=== PATIENT | female | born 1980 | race Caucasian/White ===

== ENCOUNTER 2018-05-23 10:43 | Emergency (ER) | payer MEDICAID ==
--- NOTE | 2018-05-23 11:15 | EDM.PDOC ---
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 She states that she is around 6 weeks and she noticed some bright red vaginal bleeding that began approximately one hour ago. Her last menstrual period was April 12, 2018. She has never had any type of miscarriage or past issues with pregnancies. She will be doctoring with Dr. Fernandez,and has her first appointment scheduled but has not seen him yet. She states that she is Rh-. She is worried about a possible miscarriage or ectopic . She says there was some slight cramping with this as well but nothing that was really worrisome. She states that her is worried about the viability of the and urged her to be evaluated. She states that the amount of blood loss estimated would be around a fist full at this time. She is unsure if she is just a little bit stressed out and was doing too much activity at home as well, as she has 9 children at home running around. 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 Denies: Discharge, Dysuria Musculoskeletal: Reports: No Symptoms Skin: Reports: No Symptoms Neurological: Reports: No Symptoms Psychiatric: Reports: No Symptoms Hematologic/Lymphatic: Reports: No Symptoms Immunologic: Reports: No Symptoms ED EXAM - Physical Exam Exam: See Below Exam Limited By: No Limitations General Appearance: Alert, WD/WN, No Apparent Distress Eye Exam: Bilateral Eye: Normal Inspection Ears: Normal External Exam Nose: Normal Inspection Throat/Mouth: Normal Inspection, Normal Lips, Normal Teeth, Normal Oropharynx, Normal Voice, No Airway Compromise Head: Atraumatic, Normocephalic Neck: Normal Inspection Respiratory/Chest: No Respiratory Distress, Lungs Clear, Normal Breath Sounds, No Accessory Muscle Use, Chest Non-Tender Cardiovascular: Normal Peripheral Pulses, Regular Rate, Rhythm, No Murmur GI/Abdominal Exam: Normal Bowel Sounds, Soft, Non-Tender, No Distention, No Mass (Female) Exam: Other (Pt deferred due to transvaginal US.) Heart Tones: Not Carter (too early to hear heart tones) Movement: Not Appreciated (too early to feel movement) Extremities: Normal Inspection, Normal Capillary Refill Neurological: Alert, Oriented, Normal Cognition, No Motor/Sensory Deficits Psychiatric: Normal Affect, Normal Mood Skin Exam: Warm, Dry, Intact, Normal Color, No Rash Course - Vital Signs Last Recorded V/S: Last Vital Signs Temp 98.2 F 05/23/18 10:47 Pulse 106 H 05/23/18 10:47 Resp 16 05/23/18 10:47 BP 124/74 05/23/18 10:47 Pulse Ox 98 05/23/18 10:47 - Orders/Labs/Meds Orders: Active Orders 24 hr Category Date Time Status PATIENT RETYPE [BBK] Routine Lab 05/23/18 12:38 Ordered Labs: Laboratory Tests 05/23/18 05/23/18 05/23/18 Range/Units 11:17 11:17 11:17 WBC 8.28 (3.98-10.04) K/mm3 RBC 4.47 (3.98-5.22) M/mm3 Hgb 13.5 (11.2-15.7) gm/L Hct 40.6 (34.1-44.9) % MCV 90.8 (79.4-94.8) fl MCH 30.2 (25.6-32.2) pg MCHC 33.3 (32.2-35.5) g/dl RDW Std Deviation 44.7 (36.4-46.3) fL Plt Count 193 (182-369) K/mm3 MPV 11.5 (9.4-12.3) fl Neutrophils % (Manual) 80 H (40-60) % Band Neutrophils % 3 (0-10) % Lymphocytes % (Manual) 11 L (20-40) % Atypical Lymphs % 0 % Monocytes % (Manual) 4 (2-10) % Eosinophils % (Manual) 2 (0.7-5.8) % Basophils % (Manual) 0 L (0.1-1.2) Platelet Estimate Adequate Plt Morphology Comment Normal RBC Morph Comment Normal HCG, Quant 40101.0 mIU/mL Blood Type A NEGATIVE Gel Antibody Screen Negative - Re-Assessments/Exams Free Text/Narrative Re-Assessment/Exam: 05/23/18 11:19 Patient presents to the ED for the evaluation of vaginal bleeding with . I have ordered a CBC, transvaginal ultrasound and a quantitative hCG level for further evaluation. 05/23/18 12:02 Patient's CBC has returned and does not show any decrease in hemoglobin. Ultrasound is done and awaiting the official radiology read however the prior authorization technician states that there appears to be a viable yolk sac at this time and no free fluid. 05/23/18 12:09 HCG Quant is done and reveals 34,340 which is consistent for around a 6 week . 05/23/18 12:30 Ultrasound is done and demonstrated a single intrauterine gestational sac, however no pole is visualized at this time. He does recommend a follow- up ultrasound in around 11 days barring she does not miscarry in the interim. I will recommend that she limit herself to light activity and does not have increased stress in her life as much as possible. Departure - Departure Time of Disposition: 12:30 Disposition: Home, Self-Care 01 Condition: Fair Clinical Impression: Vaginal bleeding during - Discharge Information *PRESCRIPTION DRUG MONITORING PROGRAM REVIEWED*: No *COPY OF PRESCRIPTION DRUG MONITORING REPORT IN PATIENT GIULIA: No Instructions: Pelvic Pain, Female Referrals: Bhavik Fernandez MD [Primary Care Provider] - Forms: ED Department Discharge Additional Instructions: You have been evaluated in the ED for vaginal bleeding with . Your ultrasound demonstrated a viable yolk sac at this ED visit. The estimated gestational age is 6 weeks 5 days by this ultrasound your estimated delivery date is 01/11/19. The bleeding you were having might be likely due to implantation of the fetus to the uterus lining. Please try to limit your activity over the weekend and take it easy, so you do not increase the chance of having a miscarriage. It is recommended by our radiologist that you follow up with OB in 11 days for a repeat ultrasound. Please return to the ED if your symptoms change or worsen. - My Orders Last 24 Hours: My Active Orders 05/23/18 12:38 PATIENT RETYPE [BBK] Routine - Assessment/Plan Last 24 Hours: My Active Orders 05/23/18 12:38 PATIENT RETYPE [BBK] Routine
--- NOTE | 2018-05-23 12:16 | US ---
First trimester obstetrical ultrasound: Multiple real-time images were obtained transvaginally. Comparison: No previous study. Dates: LMP: LMP given as 04/12/18, DESMOND 01/17/19 gestational age 5 weeks 6 days Current ultrasound: DESMOND 01/11/19, gestational age 6 weeks 5 days Single intrauterine gestational sac is seen. Yolk sac is identified but no pole is seen at this time. Incidental nabothian cyst is present. No subchorionic hemorrhage is seen. Small amount of free fluid is seen within the cul-de-sac which is believed to be incidental. No adnexal abnormalities are seen. Evidence of previous right oophorectomy. Impression: 1. Single intrauterine gestational sac. Dates as noted above. 2. No pole is seen. If patient does not miscarry, recommend repeat study in 11 days to further evaluate. 3. Other incidental findings. Diagnostic code #3
== END 2018-05-23 12:44 | disposition home or self-care (01) ==
LOC: JD.ED 10:43
DX: O20.9 Hemorrhage in early pregnancy, unspecified (principal); Z3A.01 Less than 8 weeks gestation of pregnancy; Z88.8 Allergy status to other drugs, medicaments and biological substances
CPT/HCPCS: 36415; 76817; 76817-26; 84702; 85007; 85027; 86850; 86900; 86901; 99282; 99284-25

== ENCOUNTER 2018-07-07 20:51 | Emergency (ER) | payer MEDICAID ==
[2018-07-07] MEDS ORDERED: Sodium Chloride 0.9% 10 ML Syringe FLUSH PRN (21:05)
--- NOTE | 2018-07-07 21:38 | EDM.PDOC ---
ED HPI GENERAL MEDICAL PROBLEM - General Source of Information: Reports: Patient History Limitations: Reports: No Limitations - History of Present Illness Onset: Today, Sudden Onset Date: 07/07/18 Onset Time: 20:00 Duration: Intermittent Location: Reports: Other (vagina) Quality: Reports: Ache Severity: Mild Improves with: Reports: None Worsens with: Reports: None Associated Symptoms: Reports: Other (cramping). 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 She is G10 P 9. She states she started bleeding after having sex earlier this evening. She c/o mild cramping. She denies any back pain, dysuria, fever, chills, nausea or vomiting. She states all her children have been born at 37 + weeks, no complications. She reports being A- blood type. She also complains of left lower leg pain. She describes the pain as a burning sensation that started after she was standing up in the shower. She denies any SOB or chest pain. She is accompanied by her spouse. She is in no apparent distress. 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: - Past Surgical History Female Surgical History: Reports: Cystectomy <July Arthur - Last Filed: 07/07/18 22:57> Social & Family History - Tobacco Use Smoking Status *Q: Never Smoker - Caffeine Use Caffeine Use: Reports: None - Recreational Drug Use Recreational Drug Use: No <July Arthur - Last Filed: 07/07/18 22:57> ED ROS GENERAL - Review of Systems Review Of Systems: See Below Constitutional: Denies: Fever, Chills HEENT: Reports: No Symptoms Respiratory: Denies: Shortness of Breath Cardiovascular: Denies: Chest Pain Endocrine: Reports: No Symptoms GI/Abdominal: Reports: Other (vaginal bleeding mild cramping). Denies: Abdominal Pain : Reports: Discharge, Other (vaginal bleeding mild cramping) Musculoskeletal: Reports: Other (left lower calf pain) Skin: Reports: No Symptoms Neurological: Reports: No Symptoms Psychiatric: Reports: No Symptoms Hematologic/Lymphatic: Reports: No Symptoms Immunologic: Reports: No Symptoms <July Arthur - Last Filed: 07/07/18 22:57> ED EXAM - Physical Exam Exam: See Below General Appearance: Alert, WD/WN, No Apparent Distress Respiratory/Chest: No Respiratory Distress, Lungs Clear, Normal Breath Sounds, No Accessory Muscle Use, Chest Non-Tender Cardiovascular: Normal Peripheral Pulses, Regular Rate, Rhythm, No Edema, No Gallop, No JVD, No Murmur, No Rub GI/Abdominal Exam: Normal Bowel Sounds, Soft, Non-Tender, No Organomegaly, No Distention, No Abnormal Bruit, No Mass, Pelvis Stable Back Exam: Normal Inspection, Full Range of Motion Extremities: Normal Inspection, Normal Range of Motion, Non-Tender, No Pedal Edema, Normal Capillary Refill, Other (left lower varicose vein engored, tender to touch, no erythema or warmth noted. ) Neurological: Alert, Oriented, CN II-XII Intact, Normal Cognition, Normal Gait Psychiatric: Normal Affect, Normal Mood Skin Exam: Warm, Dry, Intact, Normal Color, No Rash Lymphatic: No Adenopathy <July Arthur - Last Filed: 07/07/18 22:57> Course <July Arthur - Last Filed: 07/07/18 22:57> <Karan Carver - Last Filed: 07/08/18 01:10> - Vital Signs Last Recorded V/S: Last Vital Signs Temp 98.5 F 05/07/19 20:58 Pulse 94 07/07/18 20:58 Resp 16 07/07/18 20:58 BP 116/77 07/07/18 20:58 Pulse Ox 98 07/07/18 20:58 - Orders/Labs/Meds Orders: Active Orders 24 hr Category Date Time Status OB 1st Tri Sgl 1st Gest [US] Stat Exams 07/07/18 21:05 Taken VL Duplex Lwr Ext Veins Ltd Lt [US] Stat Exams 07/07/18 21:27 Taken Saline Lock Insert [OM.PC] Routine Oth 07/07/18 21:05 Ordered Labs: Laboratory Tests 07/07/18 07/07/18 07/07/18 Range/Units 21:20 21:20 21:20 WBC 9.66 (3.98-10.04) K/mm3 RBC 4.86 (3.98-5.22) M/mm3 Hgb 14.5 (11.2-15.7) gm/L Hct 44.4 (34.1-44.9) % MCV 91.4 (79.4-94.8) fl MCH 29.8 (25.6-32.2) pg MCHC 32.7 (32.2-35.5) g/dl RDW Std Deviation 45.9 (36.4-46.3) fL Plt Count 215 (182-369) K/mm3 MPV 11.4 (9.4-12.3) fl Neut % (Auto) 58.6 (34.0-71.1) % Lymph % (Auto) 32.5 (19.3-51.7) % [place] % (Auto) 6.3 (4.7-12.5) % Eos % (Auto) 2.1 (0.7-5.8) Baso % (Auto) 0.2 (0.1-1.2) % Neut # (Auto) 5.66 (1.56-6.13) K/mm3 Lymph # (Auto) 3.14 (1.18-3.74) K/mm3 [place] # (Auto) 0.61 H (0.24-0.36) K/mm3 Eos # (Auto) 0.20 (0.04-0.36) K/mm3 Baso # (Auto) 0.02 (0.01-0.08) K/mm3 Sodium 136 (136-145) mEq/L Potassium 3.8 (3.5-5.1) mEq/L Chloride 103 (98-107) mEq/L Carbon Dioxide 24 (21-32) mEq/L Anion Gap 12.8 (5-15) BUN 13 (7-18) mg/dL Creatinine 0.8 (0.55-1.02) mg/dL Est Cr Clr Drug Dosing 93.63 mL/min Estimated GFR (MDRD) > 60 (>60) mL/min BUN/Creatinine Ratio 16.3 (14-18) Glucose 89 (74-106) mg/dL Calcium 9.6 (8.5-10.1) mg/dL Total Bilirubin 0.5 (0.2-1.0) mg/dL AST 20 (15-37) U/L ALT 24 (14-59) U/L Alkaline Phosphatase 58 (46-116) U/L Total Protein 7.6 (6.4-8.2) g/dl Albumin 3.3 L (3.4-5.0) g/dl Globulin 4.3 gm/dL Albumin/Globulin Ratio 0.8 L (1-2) HCG, Quant 66025.0 mIU/mL Urine Color (Yellow) Urine Appearance (Clear) Urine pH (5.0-8.0) Ur Specific [place] (1.005-1.030) Urine Protein (Negative) Urine Glucose (UA) (Negative) Urine Ketones (Negative) Urine Occult Blood (Negative) Urine Nitrite (Negative) Urine Bilirubin (Negative) Urine Urobilinogen (0.2-1.0) Ur Leukocyte Esterase (Negative) Blood Type A NEGATIVE Gel Antibody Screen Negative Rhogam Indicated Yes 07/07/18 Range/Units 21:31 WBC (3.98-10.04) K/mm3 RBC (3.98-5.22) M/mm3 Hgb (11.2-15.7) gm/L Hct (34.1-44.9) % MCV (79.4-94.8) fl MCH (25.6-32.2) pg MCHC (32.2-35.5) g/dl RDW Std Deviation (36.4-46.3) fL Plt Count (182-369) K/mm3 MPV (9.4-12.3) fl Neut % (Auto) (34.0-71.1) % Lymph % (Auto) (19.3-51.7) % [place] % (Auto) (4.7-12.5) % Eos % (Auto) (0.7-5.8) Baso % (Auto) (0.1-1.2) % Neut # (Auto) (1.56-6.13) K/mm3 Lymph # (Auto) (1.18-3.74) K/mm3 [place] # (Auto) (0.24-0.36) K/mm3 Eos # (Auto) (0.04-0.36) K/mm3 Baso # (Auto) (0.01-0.08) K/mm3 Sodium (136-145) mEq/L Potassium (3.5-5.1) mEq/L Chloride (98-107) mEq/L Carbon Dioxide (21-32) mEq/L Anion Gap (5-15) BUN (7-18) mg/dL Creatinine (0.55-1.02) mg/dL Est Cr Clr Drug Dosing mL/min Estimated GFR (MDRD) (>60) mL/min BUN/Creatinine Ratio (14-18) Glucose (74-106) mg/dL Calcium (8.5-10.1) mg/dL Total Bilirubin (0.2-1.0) mg/dL AST (15-37) U/L ALT (14-59) U/L Alkaline Phosphatase (46-116) U/L Total Protein (6.4-8.2) g/dl Albumin (3.4-5.0) g/dl Globulin gm/dL Albumin/Globulin Ratio (1-2) HCG, Quant mIU/mL Urine Color Yellow (Yellow) Urine Appearance Clear (Clear) Urine pH 6.0 (5.0-8.0) Ur Specific [place] > or = 1.030 (1.005-1.030) Urine Protein Trace H (Negative) Urine Glucose (UA) Negative (Negative) Urine Ketones Negative (Negative) Urine Occult Blood 3+ H (Negative) Urine Nitrite Negative (Negative) Urine Bilirubin Negative (Negative) Urine Urobilinogen 0.2 (0.2-1.0) Ur Leukocyte Esterase Negative (Negative) Blood Type Gel Antibody Screen Rhogam Indicated Meds: Medications Discontinued Medications Generic Name Dose Route Start Last Admin Trade Name Freq PRN Reason Stop Dose Admin Acetaminophen 650 mg 07/07/18 21:52 07/07/18 23:11 Tylenol PO 07/07/18 21:53 650 mg NOW ONE Administration Sodium Chloride 10 ml 07/07/18 21:05 07/07/18 21:20 Saline Flush FLUSH 10 ml ASDIRECTED PRN Administration Keep Vein Open - Re-Assessments/Exams Free Text/Narrative Re-Assessment/Exam: 07/07/18 21:56 WBC 9.66 RBC 4.86, H & H 14.5 44.4, patient is in vascular lab for ultrasounds. 07/07/18 22:33 Na+ 136 K+ 3.8 chl 103 co2 24 bun 13 creatine 0.8 glucose 89 HCG QUANT 30733.0 07/07/18 22:57 Patient is in ultrasound. I transferred care to DR. Carvre. She is stable at this time. (July Arthur) Free Text/Narrative Re-Assessment/Exam: 07/08/18 00:10. Have assumed care from Danitza Arthur after her end of shift. Hx and exam was done and documented Danitza Arthur, I agree with hx and exam as documented. OB US shows single live intrauterine fetus with gestational age of 12 wks, 3 days. See Radiology report for details. Ultrasound of the leg also was negative for DVT. Patient is resting comfortably, no active bleeding at this time. Her pelvic discomfort is gone. She is ready and wants to go home. Discharge instructions as documented. 07/08/18 01:10 (Karan Carver) Departure <July Arthur - Last Filed: 07/07/18 22:57> - Departure Time of Disposition: 00:09 Condition: Fair <Karan Carver - Last Filed: 07/08/18 01:10> - Departure Disposition: Home, Self-Care 01 Clinical Impression: First trimester , Vaginal bleeding in patient at less than 20 weeks gestation - Discharge Information Instructions: Vaginal Bleeding During , First Trimester, [id number] Referrals: Bhavik Fernandez MD [Primary Care Provider] - Forms: ED Department Discharge Additional Instructions: rest, follow up clinic or Friday if possible, return to ED if symptoms worsening in any way.
[2018-07-07] MEDS ORDERED: Acetaminophen 325 MG Tab PO ONE (21:52)
--- NOTE | 2018-07-08 09:27 | US ---
Obstetrical ultrasound: Multiple real-time images were obtained transabdominally. Comparison: Prior first trimester obstetrical ultrasound of 05/23/18. Dates: LMP: LMP given as 04/12/18, DESMOND 01/17/19, gestational age 12 weeks 2 days Current ultrasound: DESMOND 01/16/19, gestational age 12 weeks 3 days Earliest ultrasound (05/23/18): DESMOND 01/11/19, gestational age 13 weeks 1 days Single intrauterine fetus is seen. Amniotic fluid volume is normal. Maternal left ovary is unremarkable. Maternal right ovary not seen with patient giving history of prior right oophorectomy. Measurements: [place]-rump length: 5.87 cm - 12 weeks 3 days Heart rate: 171 bpm Impression: 1. Single intrauterine fetus. Dates as noted above. 2. No complicating process is identified by ultrasound at this time. Diagnostic code #1 I agree with preliminary report from [facility], finalized on 07/08/18, 1:48 AM Central Time
--- NOTE | 2018-07-08 09:50 | US ---
Left lower extremity deep venous ultrasound: Duplex and color flow imaging was obtained of the left common femoral, proximal greater saphenous, superficial femoral, popliteal, posterior tibial and peroneal veins. Right common femoral vein was also evaluated. Additional images were obtained in area of pain within the medial lower calf. Normal phasic flow, augmentation and compression are seen. Superficial varicosities are identified in area described as pain. No evidence of superficial thrombophlebitis is seen. Impression: 1. Patent superficial varicosities in area described as pain. 2. No evidence of deep venous thrombosis within the left lower extremity or right common femoral vein. Diagnostic code #2
== END 2018-07-08 00:20 | disposition home or self-care (01) ==
LOC: JD.ED 20:51
DX: O20.8 Other hemorrhage in early pregnancy (principal); O09.521 Supervision of elderly multigravida, first trimester; Z79.899 Other long term (current) drug therapy; Z88.8 Allergy status to other drugs, medicaments and biological substances; Z3A.13 13 weeks gestation of pregnancy
CPT/HCPCS: 36415; 76801; 80053; 81003; 84702; 85025; 86850; 86900; 86901; 93971; 96372; 99284; A9270; J2790; 99283

== ENCOUNTER 2019-01-01 09:16 | Inpatient (IN) | payer MEDICAID ==
[2019-01-01] MEDS ORDERED: Nalbuphine 10 MG/1 ML Vial IVPUSH PRN (12:16)
[2019-01-01] MEDS ORDERED: Sodium Chloride 0.9% 10 ML Syringe FLUSH PRN (12:16)
[2019-01-01] MEDS ORDERED: Oxytocin/Lactated Ringers 10 UNIT/1,000 ML BAG IV SCH ×2 (12:30→15:30)
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
[2019-01-01] MEDS: Lactated Ringers 1,000 ML IV SCH ×2 (12:51→15:30)
--- NOTE | 2019-01-01 16:31 | PCM.SN ---
- Free Text/Narrative Note: Teri is a 38-year-old 10 para 9009 white female who is at 37-5/7 weeks gestational age with an DESMOND of 01/17/2019. She comes in in early labor with an advanced cervical dilation of 6 cm. patient was monitored and progressed slowly to complete cervical dilation by approximately 1550 hrs. She delivered a viable, witt, female infant named Juliet Gonzalez with Apgars of 8 and 9, weight of 3040 g (6 pounds 11.2 ounces), a length of 20.0 inches in a near direct occiput anterior position. There was a nuchal cord 1 which was loose and was reduced over the baby's head. There was also a true knot in the umbilical cord. The baby was then completely delivered and placed on the mom's abdomen. Nose and mouth were bulb suctioned. Pitocin was increased to a rate of 500 mL an hour to facilitate increase in uterine tone and decrease likelihood of bleeding. The umbilical cord was allowed to pulsate for approximately 1 minute and then was clamped 2 and cut by the baby's father.Cord blood was obtained. The umbilical cord had 3 vessels. The placenta then delivered in a Hernández presentation, appeared intact and complete and was discarded per patient desire. Patient had no lacerations and no suturing was required. Estimated blood loss was 400 mL. Patient plans to breast-feed. Condition: Good
[2019-01-01] MEDS ORDERED: Docusate Sodium 100 MG Cap PO PRN (16:32)
[2019-01-01] MEDS ORDERED: Witch Hazel Medicated Pads 40/Jar TOP PRN (16:32)
[2019-01-01] MEDS ORDERED: Benzocaine/Menthol 20%-0.5% Spray 56 GM Canister TOP PRN (16:32)
[2019-01-01] MEDS: Ibuprofen 600 MG Tab PO PRN ×2 (17:42→21:34)
[2019-01-01] MEDS: Acetaminophen 325 MG Tab PO PRN (20:21)
[2019-01-02] MEDS: Ibuprofen 600 MG Tab PO PRN ×4 (01:21→15:30)
[2019-01-02] MEDS: Acetaminophen 325 MG Tab PO PRN ×3 (02:05→10:56)
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
[2019-01-02] MEDS ORDERED: Prenatal Multivitamin with Calcium/Folic Acid/Iron Tab PO SCH (09:00)
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
== END 2019-01-02 17:55 | disposition home or self-care (01) | DRG 807 ==
LOC: JD.OBCHECK 09:16 → JD.OB 09:16 → JD.OBCHECK 12:16 → JD.OB 12:16 → OBSVTOIN 16:08 → JD.OB 16:09
PROVIDERS: ADMIT Obstetrics & Gynecology; ATTEND Obstetrics & Gynecology
PROC: 10E0XZZ Delivery of Products of Conception, External Approach (ICD-10-PCS; principal; 2019-01-01)
PROC: 10907ZC Drainage of Amniotic Fluid, Therapeutic from Products of Conception, Via Natural or Artificial Opening (ICD-10-PCS; 2019-01-01)
DX: O99.214 Obesity complicating childbirth (principal); Z37.0 Single live birth; E66.9 Obesity, unspecified; O69.81X0 Labor and delivery complicated by cord around neck, without compression, not applicable or unspecified; O69.2XX0 Labor and delivery complicated by other cord entanglement, with compression, not applicable or unspecified; Z64.1 Problems related to multiparity; Z79.899 Other long term (current) drug therapy; Z3A.37 37 weeks gestation of pregnancy; Z88.8 Allergy status to other drugs, medicaments and biological substances; V89.2XXA Person injured in unspecified motor-vehicle accident, traffic, initial encounter
CPT/HCPCS: 36415; 59025; 59409; 85025; 85461; 86592; 86850; 86900; 86901; A9270-GY; J2590; J2790; J7120